=== PATIENT | male | born 1940 | race Native Hawaiian/Other Pacific Islander ===

== ENCOUNTER 2016-11-29 10:29 | Outpatient (CLI) | payer OTHER, MEDICARE ==
[2016-11-29 11:09] LABS: PLATELET COUNT 343 K/uL (142-355)
[2016-11-29 11:29] LABS: POTASSIUM 3.3 mmol/L (3.6-5.2)
== END 2016-11-29 20:17 | disposition home or self-care (01) ==
LOC: LAB 10:29 → LABW 10:29 → INF 10:29
PROVIDERS: Nurse Practitioner
DX: E86.0 Dehydration (principal); L03.115 Cellulitis of right lower limb; R53.1 Weakness; I10 Essential (primary) hypertension; I50.9 Heart failure, unspecified
CPT/HCPCS: 36415; 80053; 81000; 85027; 85651; 86140; 87040; 87070; 87205; 96361; 96365

== ENCOUNTER 2016-12-04 08:21 | Outpatient (CLI) | payer OTHER, MEDICARE ==
[~2016-12-04] VITALS: Ht 180.3 cm; Wt 116.6 kg
[2016-12-04 09:34] LABS: POTASSIUM 3.4 mmol/L (3.6-5.2); SODIUM 136 mmol/L (136-145)
[2016-12-04] MEDS ORDERED: LIPITOR40 MG PO (20:58)
[2016-12-04] MEDS ORDERED: LISI10TA11 PO (20:59)
[2016-12-04] MEDS ORDERED: METOPROLOL25 M1 OR (21:00)
== END 2016-12-04 19:11 | disposition home or self-care (01) ==
LOC: INF 08:21
PROVIDERS: Emergency Medicine
DX: M86.171 Other acute osteomyelitis, right ankle and foot (principal)
CPT/HCPCS: 36415; 80048; 80202; J3370

== ENCOUNTER 2016-12-04 20:44 | Emergency (ER) | payer OTHER, MEDICARE ==
[~2016-12-04] VITALS: Ht 180.3 cm; Wt 117.9 kg
[2016-12-04] MEDS ORDERED: LIPITOR40 MG PO (20:58)
[2016-12-04] MEDS ORDERED: LISI10TA11 PO (20:59)
[2016-12-04] MEDS ORDERED: METOPROLOL25 M1 OR (21:00)
[2016-12-04 21:58] VITALS: BP 141/76; TEMP 97.9
== END 2016-12-04 21:59 | disposition home or self-care (01) ==
LOC: ED 20:44
DX: I16.0 Hypertensive urgency (principal); M86.171 Other acute osteomyelitis, right ankle and foot
CPT/HCPCS: 36415; 36591; 80048; 80202; 96365; 96366; 99282; J3370

== ENCOUNTER 2016-12-06 09:03 | Outpatient (CLI) | payer OTHER, MEDICARE ==
[~2016-12-06 09:03] MED LIST: LIPITOR40 MG PO; LISI10TA11 PO; METOPROLOL25 M1 OR
[2016-12-06 09:30] VITALS: BP 163/102; TEMP 98.6
[2016-12-06 09:45] VITALS: BP 174/103
[2016-12-06 09:55] VITALS: BP 174/100
== END 2016-12-06 19:32 | disposition home or self-care (01) ==
LOC: INF 09:03
DX: Z98.890 Other specified postprocedural states (principal)
CPT/HCPCS: 96523

== ENCOUNTER 2016-12-10 16:43 | Outpatient (CLI) | payer OTHER, MEDICARE ==
[2016-12-10 17:23] LABS: PLATELET COUNT 46 K/uL (142-355)
[2016-12-10 17:50] LABS: POTASSIUM 3.7 mmol/L (3.6-5.2); SODIUM 128 mmol/L (136-145)
== END 2016-12-10 19:36 | disposition home or self-care (01) ==
LOC: LAB 16:43
PROVIDERS: Internal Medicine Cardiovascular Disease
DX: I48.91 Unspecified atrial fibrillation (principal); I25.10 Atherosclerotic heart disease of native coronary artery without angina pectoris; E78.2 Mixed hyperlipidemia; I10 Essential (primary) hypertension; Z79.01 Long term (current) use of anticoagulants; Z51.81 Encounter for therapeutic drug level monitoring
CPT/HCPCS: 80048; 80061; 80076; 84443; 85027

== ENCOUNTER 2018-05-16 08:51 | Outpatient (CLI) | payer OTHER, MEDICARE | END 2018-05-16 19:04 | disposition home or self-care (01) | LOC: US 08:51 | DX: R60.0 Localized edema (principal) ==

== ENCOUNTER 2018-06-03 04:26 | Inpatient (IN) | payer OTHER, MEDICARE ==
[~2018-06-03] VITALS: Ht 180.3 cm; Wt 120.3 kg
[2018-06-03] VITALS (18 sets, daily range): BP systolic 69–133; BP diastolic 42–92; TEMP 97.9–99.3; Ht 180.3 cm; Wt 120.3 kg
[2018-06-03] MEDS ORDERED: K-TAB10 MEQ PO (04:36)
[2018-06-03] MEDS ORDERED: BAYER CHEWABLE81 MG PO (04:37)
[2018-06-03] MEDS ORDERED: TAMS0.4C PO (04:37)
[2018-06-03] MEDS ORDERED: METO50TA27 PO (04:38)
[2018-06-03] MEDS ORDERED: [UNRECOGNIZED DRUG - CODE] PO (04:38)
[2018-06-03] MEDS ORDERED: ELIQUIS5 MG PO (04:39)
[2018-06-03 04:58] LABS: PLATELET COUNT 178 K/uL (142-355)
[2018-06-03 05:11] LABS: POTASSIUM 3.4 mmol/L (3.6-5.2); SODIUM 134 mmol/L (136-145)
[2018-06-04] VITALS (22 sets, daily range): BP systolic 95–167; BP diastolic 51–89; TEMP 98–98.4
[2018-06-04 08:16] LABS: PLATELET COUNT 159 K/uL (142-355)
[2018-06-04 08:25] LABS: POTASSIUM 3.8 mmol/L (3.6-5.2)
[2018-06-05] VITALS (16 sets, daily range): BP systolic 83–163; BP diastolic 48–95; TEMP 97.9–98.4
[2018-06-05 07:10] LABS: PLATELET COUNT 155 K/uL (142-355)
[2018-06-05 07:19] LABS: POTASSIUM 3.8 mmol/L (3.6-5.2)
[2018-06-06 00:24] VITALS: BP 147/69; TEMP 98.2
[2018-06-06 04:29] VITALS: BP 136/58; TEMP 98
[2018-06-06 08:03] VITALS: BP 144/67; TEMP 97.8
[2018-06-06 12:20] VITALS: BP 130/60; TEMP 97.8
== END 2018-06-06 14:00 | disposition home or self-care (01) | DRG 65 ==
LOC: ED 04:26 → ICU 06:15 → MED/SURG 06-05 14:15
PROVIDERS: Emergency Medicine; Internal Medicine
DX: I63.89 Other cerebral infarction (principal); L03.115 Cellulitis of right lower limb; N39.0 Urinary tract infection, site not specified; G81.91 Hemiplegia, unspecified affecting right dominant side; I10 Essential (primary) hypertension; I25.10 Atherosclerotic heart disease of native coronary artery without angina pectoris; I25.2 Old myocardial infarction
CPT/HCPCS: 51702; 80053; 81000; 82550; 82553; 83735; 83880; 84484; 85027; 87040; 93005; 94760; 99285; J0696; J0744; J1650; J2060; J2405; J3490; J7120

== ENCOUNTER 2020-10-14 15:33 | Outpatient (CLI) | payer OTHER, MEDICARE ==
[~2020-10-14 15:33] MED LIST changes: +BAYER CHEWABLE81 MG PO; +ELIQUIS5 MG PO; +K-TAB10 MEQ PO; +METO50TA27 PO; +TAMS0.4C PO; +[UNRECOGNIZED DRUG - CODE] PO
== END 2020-10-14 20:58 | disposition home or self-care (01) ==
LOC: LAB 15:33
PROVIDERS: ATTEND Nurse Practitioner
DX: R39.15 Urgency of urination (principal)
CPT/HCPCS: 81000

== ENCOUNTER 2020-11-25 10:07 | Outpatient (CLI) | payer OTHER, MEDICARE | END 2020-11-25 19:51 | disposition home or self-care (01) | LOC: LAB 10:07 | PROVIDERS: ATTEND Internal Medicine Cardiovascular Disease | DX: I25.10 Atherosclerotic heart disease of native coronary artery without angina pectoris (principal) | CPT/HCPCS: 36415; 80061 ==

== ENCOUNTER 2021-03-12 06:30 | Inpatient (IN) | payer OTHER, MEDICARE ==
[2021-03-12] VITALS (10 sets, daily range): BP systolic 98–148; BP diastolic 45–68; TEMP 98–98.9; Ht 180.3 cm; Wt 112.2 kg
[~2021-03-12] VITALS: Ht 180.3 cm; Wt 112.2 kg
[2021-03-12 07:31] LABS: PLATELET COUNT 152 K/uL (142-355)
[2021-03-12 07:46] LABS: SODIUM 128 mmol/L (136-145)
[2021-03-12 07:51] LABS: PARTIAL THROMBOPLASTIN TIME 25.2 SECONDS (24.5-33.6)
[2021-03-12] MEDS ORDERED: DOXAZOSIN4 M1 PO (10:58)
[2021-03-12] MEDS ORDERED: ASPIRIN REGULA325 MG PO (11:00)
[2021-03-13 04:00] VITALS: BP 152/66; TEMP 98.2
[2021-03-13 05:48] LABS: PLATELET COUNT 126 K/uL (142-355)
[2021-03-13 06:15] LABS: POTASSIUM 2.8 mmol/L (3.6-5.2)
[2021-03-13 08:00] VITALS: BP 136/72; TEMP 98.1
[2021-03-13 12:00] VITALS: BP 148/71; TEMP 98.2
[2021-03-13 16:00] VITALS: BP 150/69; TEMP 97.9
[2021-03-13 20:00] VITALS: BP 152/66; TEMP 98.4
[2021-03-14] VITALS: BP 142/661; TEMP 98
[2021-03-14 04:00] VITALS: BP 133/73; TEMP 97.6
[2021-03-14 06:01] LABS: PLATELET COUNT 145 K/uL (142-355)
[2021-03-14 06:25] LABS: POTASSIUM 3.2 mmol/L (3.6-5.2)
[2021-03-14 08:00] VITALS: BP 147/66; TEMP 97.4
[2021-03-14 12:00] VITALS: BP 159/71; TEMP 97.5
[2021-03-14 16:00] VITALS: BP 139/60; TEMP 97.6
[2021-03-14 20:22] VITALS: BP 169/74; TEMP 98.4
[2021-03-15] VITALS: BP 121/65; TEMP 97.5
[2021-03-15 04:00] VITALS: BP 123/46; TEMP 97.8
[2021-03-15 05:20] LABS: PLATELET COUNT 159 K/uL (142-355)
[2021-03-15 05:33] LABS: POTASSIUM 3.6 mmol/L (3.6-5.2)
[2021-03-15 08:00] VITALS: BP 148/64; TEMP 97.7
[2021-03-15 12:00] VITALS: BP 129/67; TEMP 98.3
[2021-03-15 16:00] VITALS: BP 142/78; TEMP 97.7
[2021-03-15 20:00] VITALS: BP 164/75; TEMP 98.1
[2021-03-16 00:21] VITALS: BP 116/80; TEMP 97.3
[2021-03-16 04:00] VITALS: BP 134/68; TEMP 97.5
[2021-03-16 08:00] VITALS: BP 154/76; TEMP 97.7
[2021-03-16 08:19] LABS: PLATELET COUNT 189 K/uL (142-355)
[2021-03-16 08:33] LABS: POTASSIUM 3.9 mmol/L (3.6-5.2)
[2021-03-16 12:00] VITALS: BP 117/60; TEMP 97.7
[2021-03-16 16:00] VITALS: BP 161/79; TEMP 97.7
== END 2021-03-16 18:42 | disposition swing bed (61) | DRG 948 ==
LOC: ED 06:30 → MED/SURG 08:45
PROVIDERS: Family Medicine; Internal Medicine Endocrinology, Diabetes & Metabolism; ADMIT Internal Medicine; ATTEND Internal Medicine
DX: R53.1 Weakness (principal); E87.1 Hypo-osmolality and hyponatremia; L03.116 Cellulitis of left lower limb; L03.115 Cellulitis of right lower limb; E87.6 Hypokalemia; I48.91 Unspecified atrial fibrillation; I25.10 Atherosclerotic heart disease of native coronary artery without angina pectoris; Z85.46 Personal history of malignant neoplasm of prostate; R10.13 Epigastric pain; Z86.73 Personal history of transient ischemic attack (TIA), and cerebral infarction without residual deficits; I10 Essential (primary) hypertension; R62.7 Adult failure to thrive
CPT/HCPCS: 36415; 51702; 80048; 80053; 81000; 82550; 83605; 84443; 84484; 85027; 85379; 85610; 85730; 87635; 93005; 96360; 96361; 99284; J1650; J2405; J3490; U0003

== ENCOUNTER 2021-03-16 17:05 | Inpatient (IN) | payer OTHER, MEDICARE ==
[~2021-03-16] VITALS: Ht 180.3 cm; Wt 119.4 kg
[~2021-03-16 17:05] MED LIST changes: +ASPIRIN REGULA325 MG PO; +DOXAZOSIN4 M1 PO
[2021-03-16 20:00] VITALS: BP 154/88; TEMP 98
--- NOTE | 2021-03-17 05:23 | NUR ---
Patient is now in the Swing Bed program and is 5'11 inches at 264 lbs. and BMI at 36.8 and is Class II Obesity and IBW for height and male is 172+/-10% (155 to 189 lbs.) and kcal needs for IBW x 25 = 2000 kcal, x 30 = 1300 kcal/day, x 35 = 2700, x 40 = 3100 kcal/day, protein needs x 1.2 to 1.5 = 94 to 117 gram per day and fluids for IBW x 25 to 40 = 200 to 3100 ml/cc per day and patient is 153.4% of IBW. Was admitted with weakness and falls and patient is being hydrated and has IV antibiotics and lives alone and labs reveal HGB, HCT, MCV, MCH, MCHC, Na, Cl, Mg, ALT, and HDL particles are all depressed and CO2, Total bilirubin, and RDW all elevated, BP at 154/80 and has a Dx. of HTN urgency, CVA, UTI and ulcer to right foot and cellulitis of unspecified. On aLow Sodium diet plan. I visited with the patient yesterday. RD available as needed. RD Recommendaitons: 1-Monitor labs 2-PT and OT to work with the patient as needed 3-May want to add NCS High Fiber ot the diet plan 4-Add a MVI 5-Add Vitamin C 500 mg BID 6-Add ZNSO4 220 mg per day x 14 days 7-Add protein 30 ml/cc TID 8-Add 1 cup extra fluid with meals and suggest to add Cranberry Juice with meals 9-May want to add a yogurt iwht meals if will take
[2021-03-17 06:25] VITALS: BP 154/88; TEMP 98.1; Ht 180.3 cm; Wt 119.4 kg
--- NOTE | 2021-03-17 10:33 | NUR ---
Talked with the patient and Avis and talked to him about healthier eating and he would like NCS High Fiber added to his diet plan and he is presently on a low sodium diet and wants to follow. He has been recieving sausage for breakfast and cubed steak with gravy and he stated he only eats 2 meals a day and I encourges him to eat 3 meals a day and went over best meats are chicken, fish and shellfish broiled, boiled, baked, roasted, stewed, grilled or stir fried. He suggested maybe soup for the meal and I stated soups are the highest foods in sodium and went over meats to avoid like, wheat, ham, sausage, luncheon meats, hotdogs, etc.. Recommened: Add High Fiber NCS to the low sodium diet and he wats to follow to decrease weight and try and eat healthier and I stressed to try and include fresh fruit daily.
[2021-03-17 20:00] VITALS: BP 117/63; TEMP 98.2
--- NOTE | 2021-03-18 00:06 | NUR ---
CARTOON DESIGNER HEARD PT GROANING AND YELLING FROM ROOM. WHEN CARTOON DESIGNER ARRIVED IN PT'S ROOM PT STATED "I WAS TRYING TO PEE BUT I CANNOT". CARTOON DESIGNER GOT THE URINAL AND ASSISTED PT TO USE THE URINAL. PT BEGAN TO BARE DOWN VERY HARD IF TO HAVE A BOWEL MOVEMENT BEFORE STREAM OF PEE BEGAN. PT VOIDED 150 ML OF URINE INTO THE URINAL. PT HAD ALREADY URINATED IN THE BED PRIOR TO THE ARRIVAL OF CARTOON DESIGNER. CARTOON DESIGNER BEGAN TO CHANGE BED LINEN WHEN PT ROLLED TO THE LEFT SIDE HE BEGAN TO URINATE AGAIN. PT WAS ABLE TO ROLL ON HIS OWN WITHIN THE BED BUT GROANED AND STATED THAT HIS BACK HIS HURTS. FRESH LINEN AND BRIEF WERE PUT INTO PLACE. PT WAS LEFT IN LOW FOWLERS POSITION WITH SIDERAILS UP X3 AND CALL LIGHT WITHIN REACH. PT WAS EDUCATED TO USE CALL LIGHT TO CALL CARTOON DESIGNER NEXT TIME HE NEEDED TO URINATE.
--- NOTE | 2021-03-18 01:37 | NUR ---
PT CALLED FOR ASSISTANCE WITH THE URINAL. AFTER URINAL WAS PLACED PT BEGAN TO STRAIN TO BEGIN A URINE STREAM. PT VOIDED 25 ML OF PALE URINE. PT STATED "THAT IS ABOUT HOW MUCH I DO EVERY TIME". WHEN PT WAS ASKED IF HE HAS EVER HAD HIS PROSTATE CHECKED THE PT STATED "YES AND I HAVE HAD A TURP DONE BUT IT DID NOT HELP". PT WAS LEFT IN LOW FOWLERS, BEDRAILS UP X3, AND CALL LIGHT WITHIN REACH.
--- NOTE | 2021-03-18 02:36 | NUR ---
PT CALLED FOR ASSISTANCE WITH URINAL. HISTOLOGY SPECIALIST PLACED URINAL IN PROPER POSITION PT BEGAN BARING DOWN TO URINATE. PT STATED "I KEEP FEELING LIKE I HAVE TO PEE BUT THEN I CANT". PT URINATED APPROXIMATELY 25ML.
--- NOTE | 2021-03-18 08:00 | NUR ---
ASSIST Pt. UP TO CHAIR. Pt. REQUIRE MAX ASSIST.
--- NOTE | 2021-03-18 13:00 | NUR ---
Pt. RETURNED TO BED WITH ASSIST.
[2021-03-18 20:00] VITALS: BP 177/79; TEMP 98
--- NOTE | 2021-03-18 22:35 | NUR ---
PT'S BLOOD PRESSURE WAS 177/79 AT 1999. BLOOD PRESSURE RECHECKED AND IS NOW 150/70
--- NOTE | 2021-03-19 04:40 | NUR ---
Talked with the FSD/CDM Teersa and they are serving turkey sausage and we went over the sodium and they were serving 3 pieces and she will begin serving 1 piece of turkey sausage and she also talked with the cooks to change the serving size as well as the patient and Avis to tell them what she was doing, making the changes. We went over all the foods she/her staff are serving and stressed to follow the menus and she will go over wiht all staff, I also have been doing a weekly inservice edcuation with the FS staff going over the different diets with handouts and verbal feedback for the FS staff. They also recieve bifolds to help them better understand the diets and will also be doing handouts to post so they can review as well.
[2021-03-19 08:00] VITALS: BP 140/67; TEMP 97.5
--- NOTE | 2021-03-19 08:15 | NUR ---
IN PT'S ROOM FOR ASSESSMENT, PT IS SITTING UP ON THE SIDE OF THE BED. PT IS ALERT AND ORIENTED. HEART SOUNDS ARE AT REGULAR RATE AND RHYTHM, CAP REFILL <3 SEC IN ALL FOUR EXTREMETIES, PULSES FELT IN UPPER EXTREMITIES AND WEAK IN LOWER EXTREMITIES, PITTING +1 EDEMA IN BLE. BROOK WRAP BANDAGE PRESENT ON RIGHT FOOT. LUNG SOUNDS ARE PRESENT WITH EXPIRATORY WHEEZES, NO COUGH PRESENT. SKIN TURGOR GOOD, SKIN IS WARM AND DRY. ABDOMINAL SOUNDS ARE PRESENT IN ALL FOUR QUADRANTS, STOMACH IS ROUND AND SOFT WITH SMALL BRUISING TO LOWER ABDOMEN. PT STATES THAT THE ONLY PAIN HE IS FEELING THIS MORNING IS THE CHRONIC PAIN THAT HE EXPERIENCES IN HIS BACK. PT DENIES ANY NEEDS AT THIS TIME.
[2021-03-19 20:00] VITALS: BP 145/58; TEMP 97.8
--- NOTE | 2021-03-20 02:30 | NUR ---
03/19/21 2100: PT SITTING ON EDGE OF BED. NO DISTRESS NOTED. WANTS TO BE PUT IN BED. TAKES 2 PERSON MAJOR ASSIST. PT PUT INTO BED AND PULLED UP TO HIGH FOWLERS POSITION. NO DISTRESS NOTED.
[2021-03-20 08:00] VITALS: BP 161/67; TEMP 97.4
--- NOTE | 2021-03-20 16:00 | NUR ---
Pt. SITTING UP IN CHAIR WORKING WITH PHYSICAL THERAPY.
[2021-03-20 20:00] VITALS: BP 150/65; TEMP 97.9
--- NOTE | 2021-03-21 07:45 | NUR ---
PT SITTING UP ON BEDSIDE. ERVIN OT IN TO SEE PT. PT REPORTS HE HAS BEEN SITTING UP ON SIDE OFF BED SINCE 0500 BECAUSE HIS BACK WAS HURTING. PT OFFERED TO SIT IN RECLINER, PT REFUSED STATING "NO I'LL JUST SIT IN THAT CHAIR RIGHT THERE, I'LL BE FINE IN THAT ONE" PT'S BRACE FOR RLE PLACED ON HIM BY LACY MUELLER. PT STATES "NO I CAN'T PUT IT ON MY SON DOES IT"
[2021-03-21 08:00] VITALS: BP 160/71; TEMP 97.4
--- NOTE | 2021-03-21 09:34 | NUR ---
PT REQUESTS TO TALK WITH DR. BULL ABOUT HIS BLOOD PRESSURE MEDICATIONS. PT SITTING UP IN CHAIR AT BEDSIDE. PT REQUESTED HIS BLINDS TO BE OPENED. OPENED PT'S BLINDS. PT DENIES ANY FURTHER QUESTIONS OR COMPLAINTS AT THIS TIME.
--- NOTE | 2021-03-21 15:31 | NUR ---
PT STATES AT THIS TIME "CAN YOU WRITE ON THAT COMPUTER, DO NOT WANT THE LOZOL" NOTED THAT PT DOES NOT WANT THE LOZOL.
[2021-03-21 20:00] VITALS: BP 156/74; TEMP 98.1
[2021-03-22 08:00] VITALS: BP 109/67; TEMP 98.1
[2021-03-22 20:00] VITALS: BP 157/73; TEMP 98.3
[2021-03-23 08:00] VITALS: BP 160/80; TEMP 97.7
--- NOTE | 2021-03-23 14:50 | NUR ---
DRESSING CHANGE COMPLETED TO 5TH METATARSAL BASE 1.5 CMx 1.9 CMx 0.4CM SOILED DRESSING REMOVED AFTER SHOWER. CLEANSED WOUND WITH NORMAL SALINE. APPLIED HYDRAFERA BLUE MOISTENED WITH NORMAL SALINE, COVERED WITH STERILE 2X2, 4X4, AND WRAPPED WITH KERLIX AND SECURED WITH COBAN.
--- NOTE | 2021-03-23 17:27 | NUR ---
IDT Team Meeting and is in the Swing Bed Program; Met today with patients and his diet has been changed to a Regualr diet plan and he is 5'11" and at 261 lbs. and 1 ounce and he satted all his meals and food are good. He was on a low sdoium diet plan and Mr. Spencer, patient and I talked severla times last week. Was on a Low Sodium diet d/t blood pressure, he is swollern and we think it is actaul weight gain because he is eating 3 meals and not 2 meals a day as he was doing at home. Pleased with meals and RD is available as needed.
[2021-03-23 20:00] VITALS: BP 164/77; TEMP 97.9
--- NOTE | 2021-03-24 04:05 | NUR ---
PT RESTING QUIETLY. CALLS FOR ASSISTANCE TO USE URINAL. NO VOICED COMPLAINTS AT THIS TIME.
[2021-03-24 08:00] VITALS: BP 132/66; TEMP 97.7
--- NOTE | 2021-03-24 10:19 | NUR ---
we had IDT meeting yesterday in pts room, see list of attandees, but also with Ananya Bernardo RD on speaker phone. Pts goal is to return home as independent as possible, and with assistance from his son Jasper Hameed. He states he already has separating machine operator, WC, lift chair, safe step tub, and his son beings hot meals. He agreed to a home evaluation possibly the end of next week or the following week.
--- NOTE | 2021-03-24 14:26 | NUR ---
PT SITTING UP ON THE SIDE OF BED. ALERT AND ORIENTED. DENIES ANY PAIN OR DISCOMFORT. NAD NOTED. EDEMA NOTED TO LOWER EXTREMITIES, PITTING +1. PT CONTINUES TO VOID IN URINAL WITH ASSISTANCE FROM NURSING STAFF. PT COMPLIANT WITH PT. CONSULTED WITH DR CABRAL REGARDING PTS MEDS AND EDEMA TO LOWER EXTREMITIES. PER DR CABRAL D/C LASIX, CLINDAMYCIN AND BEGIN LASIX 40 MG PO X 1 DOSE NOW.
[2021-03-24 14:59] LABS: PLATELET COUNT 197 K/uL (142-355)
[2021-03-24 15:12] LABS: POTASSIUM 4.6 mmol/L (3.6-5.2)
[2021-03-24 20:00] VITALS: BP 139/76; TEMP 98.3
[2021-03-25 05:56] LABS: PLATELET COUNT 185 K/uL (142-355)
[2021-03-25 08:00] VITALS: BP 148/62; TEMP 98.1
--- NOTE | 2021-03-25 08:21 | NUR ---
PT UP SITTING ON THE SIDE OF BED. ALERT AND ORIENTED. DENIES ANY PAIN OR DISCOMFORT. EDEMA NOTED TO LOWER EXTREMITIES, PITTING +1. PT ON LASIX PO DAILY. NO NAD NOTED. PT REPLIED "I SLEPT BETTER LAST NIGHT THAN I HAVE IN A LONG TIME." PT STATED HE SLEPT 6 HRS WITHOUT NO INTERUPTION.
--- NOTE | 2021-03-25 17:30 | NUR ---
PT SITTING UP MOST OF THE DAY. PT DENIES ANY PAIN OR DISCOMFORT AT THIS TIME. NAD NOTED. PT ALERT AND ORIENTED.
[2021-03-25 20:00] VITALS: BP 137/69; TEMP 97.5
--- NOTE | 2021-03-26 04:35 | NUR ---
Pt resting quietly in bed with eyes closed. Calls for assistance as needed with use of urinal. Has occassional incontinent episodes. PRN pain med given at hs for c/o lower back and right foot pain with relief noted. No further c/o voiced. Call light in easy reach.
[2021-03-26 05:26] LABS: PLATELET COUNT 187 K/uL (142-355)
[2021-03-26 08:00] VITALS: BP 115/65; TEMP 97.5
--- NOTE | 2021-03-26 11:12 | NUR ---
PT UP SITTING ON THE SIDE OF BED. ASSISTED PT WITH URINAL TO VOID, PT UNABLE TO HOLD URINAL ON HIS OWN, DECREASED GRASP. NAD NOTED. EDEMA NOTED TO LOWER EXTREMITIES,NON-PITTING. PT ALERT AND ORIENTED. AM MEDS ADMINISTERED EXCEPT THE LISNOPRIL R/T PTS SE=[phone]/[id number]. CONTINUE TO MONITOR.
--- NOTE | 2021-03-26 18:53 | NUR ---
CHANGED WOUND TO RIGHT HEEL WITH HYDRAFERA BLUE W/ NS AND COVERED W/ STERILE 2X2 AND 4X4, THEN WRAPPED WITH KERLIX AND USED COBAN TO SECURE DSG. WOUND 1.5CM X 1.9CMCM X 0.4CM. WOUND RED WITH NO ODOR AND SKIN INTACT AROUND WOUND. PT DENIES ANY PAIN/DISCOMFORT.
[2021-03-26 20:00] VITALS: BP 147/77; TEMP 97.7
--- NOTE | 2021-03-27 04:45 | NUR ---
Pt resting in bed with eyes closed. Dressing to right foot dry and intact. PRN pain med given with hs meds for lower back pain and right foot pain with relief noted. No further c/o pain/discomfort voiced. No s/s of distress. Call light in easy reach.
[2021-03-27 05:13] LABS: PLATELET COUNT 187 K/uL (142-355)
[2021-03-27 08:00] VITALS: BP 106/59; TEMP 97.9
[2021-03-27 20:00] VITALS: BP 109/55; TEMP 97.7
--- NOTE | 2021-03-28 04:21 | NUR ---
PT RESTING QUIETLY. NO DISTRESS NOTED. NO FURTHER COMPLAINTS OF PAIN. PT CALLS FOR ASSISTANCE WITH URINAL.
[2021-03-28 06:13] LABS: PLATELET COUNT 204 K/uL (142-355)
[2021-03-28 08:00] VITALS: BP 116/56; TEMP 98
[2021-03-28 20:00] VITALS: BP 140/62; TEMP 98.3
[2021-03-29 08:00] VITALS: BP 151/72; TEMP 97.7
--- NOTE | 2021-03-29 12:17 | NUR ---
PT UP IN CHAIR WITH ASSISTANCE FROM PT. PT COMPLIANT WITH THEARPY. PT ONE PERSON ASSIST WHEN VOIDING IN URINAL. PT CAN STAND UP FROM CHAIR TO WALKER WITH ONE PERSON ASSIST. NAD NOTED. DENIES PAIN/DISCOMFORT. AM MEDS ADMINISTERED WITH NO DIFFICULTY. PT VOICED CONCERNS ABOUT GOING HOME ON SATURDAY AND GOING FOR HOME EVAL ON SATURDAY. PT ELATED TO GO HOME. PT STATED "I FEEL LIKE I HAVE MADE A LOT OF PROGRESS AND WILL DO BETTER AT HOME B/C OF FAMILIAR SURROUNDINGS."
[2021-03-29 20:00] VITALS: BP 127/61; TEMP 98
[2021-03-30 05:11] LABS: PLATELET COUNT 185 K/uL (142-355)
[2021-03-30 08:00] VITALS: BP 125/57; TEMP 98.4
--- NOTE | 2021-03-30 10:43 | NUR ---
PT ASSISTED WITH BATH AND GETTING DRESSED FOR HOME EVAL. NAD NOTED. EDEMA TO LOWER EXTREMITIES. DENIES ANY PAIN/DISCOMFORT. AM MEDS ADMINISTERED AND PT TOLERATED WELL. PT ATE BREAKFAST. ALERT AND OREIENTED. SON ARRIVED TO PICK PT UP FOR HOME EVAL. AT 0900, PT TRANSPORTED TO FRONT VIA WHEELCHAIR.
--- NOTE | 2021-03-30 16:10 | NUR ---
PT RETURNED FROM HOME EVALUATION AT 1600. PT ASSISTED TO BEDSIDE COMMODE AND THEN TO BED. PT STATED "I ENJOYED MY VISIT" DENIES ANY PAIN/DISCOMFORT. NAD NOTED. PTS SON IS SCHEDULED TO PICK PT UP ON SATURDAY, March TO BE DISCHARGED HOME AT 0900.
--- NOTE | 2021-03-30 18:25 | NUR ---
PT SITTING UP IN CHAIR. PT TALKED ABOUT HOW WELL HIS HOME EVALUATION HAD BEEN TODAY. PT ANXIOUS ABOUT GOING HOME IN AM. WOUND CHANGE TO RIGHT HEEL COMPLETED. CLEANED WITH NS, WOUND PINK AND RED IN COLOR. PURULENT DRAINAGE NOTED TO OLD DSG. STERILE 2X2 GAUZE AND 4X4 GAUZE APPLIED TO WOUND AND WRAPPED IN KIRLEX AND INTACT WITH KOBAN. WRAPPED LOOSELY.
[2021-03-30 20:00] VITALS: BP 146/59; TEMP 98.1
--- NOTE | 2021-03-31 04:51 | NUR ---
Pt resting in bed with eyes closed. Calls for assistance with urinal during the night. Denies c/o pain/distress at this time. No s/s of distress. Call light in easy reach.
[2021-03-31 05:36] LABS: PLATELET COUNT 197 K/uL (142-355)
--- NOTE | 2021-03-31 07:44 | NUR ---
PT AWAKE, ALERT AND ORIENTED. PT SITTING UP IN CHAIR, NSG STAFF ASSISTED PT AND PT IS DRESSED AND READY TO GO HOME. PT DENIES ANY PAIN/DISCOMFORT. EDEMA TO LOWER EXTREMITIES IMPROVED, NON-PITTING EDEMA. PT ON DIURETIC MEDICATION. PT ELATED ABOUT GOING HOME, "I'M FAMILIAR WITH MY HOUSE." NAD NOTED. AM MEDS ADMINISTERED ORDERED.
--- NOTE | 2021-03-31 08:19 | NUR ---
PTS BG=[phone]/[id number], DID NOT ADMINISTER LINSINOPRIL AND METOPROLOL. EXPLAINED TO PT WHY MED WAS HELD. PT AGREES.
[2021-03-31 08:20] VITALS: BP 116/54; TEMP 97.7
--- NOTE | 2021-03-31 09:17 | NUR ---
i spoke with pt this am in his room and he stated he was ready for discharge today. I told him i would speak with Dr. Brannon for her recommendations. I spoke with pts son, Bradley Hameed [phone] cell, to let him know that pt stated he is ready for discharge today. I informed Bradley that the therapist recommended a 12 in permanant grab bar in front of pts toilet for safety, and they recommended a BSC with drop arms for easier transfers. Bradley stated he will pu the grab bar & a medical office professional instructor with pincher that Mr. Hameed wanted from [employer] and that he will pu the BSC with drop arms from [employer].
--- NOTE | 2021-03-31 10:51 | NUR ---
PT SITTING UP IN CHAIR AWAITING DISCHARGE. DENIES ANY PAIN/DISCOMFORT. NAD NOTED. PT ALERT AND ORIENTED.
[2021-03-31] MEDS ORDERED: BLOOMIS59 PO ×5 (13:22→13:31)
--- NOTE | 2021-03-31 14:41 | NUR ---
PT GIVEN DISCHARGE INSTRUCTIONS AND PT EDUCAION IN WRITTEN FORM REGARDING DX AND MEDICATIONS. PT VERBALIZED UNDERSTANDING. LISIONOPRIL AND LASIX CALLED IN TO [facility]. HOME MEDS GIVEN TO PT AND PT SIGNED HOME MED FORM, FORM IN CHART. F/U APPOINTMENT WITH PCP GIVEN TO PT AND SON. PT TRANSPORTED OUT OF FACILITY VIA WHEELCHAIR, SON PICKED PT UP.
== END 2021-03-31 12:45 | disposition home health service (06) | DRG 602 ==
LOC: MED/SURG 17:05
PROVIDERS: ADMIT Internal Medicine; ATTEND Internal Medicine
DX: L03.115 Cellulitis of right lower limb (principal); L03.116 Cellulitis of left lower limb; L89.893 Pressure ulcer of other site, stage 3; R53.81 Other malaise; M62.81 Muscle weakness (generalized); Z74.1 Need for assistance with personal care; R26.81 Unsteadiness on feet; I48.91 Unspecified atrial fibrillation; I25.10 Atherosclerotic heart disease of native coronary artery without angina pectoris; I10 Essential (primary) hypertension; Z91.81 History of falling; N40.1 Benign prostatic hyperplasia with lower urinary tract symptoms; I73.9 Peripheral vascular disease, unspecified; G62.9 Polyneuropathy, unspecified; R32 Unspecified urinary incontinence; E87.6 Hypokalemia; M21.6X1 Other acquired deformities of right foot; E78.6 Lipoprotein deficiency; E87.1 Hypo-osmolality and hyponatremia; Z85.46 Personal history of malignant neoplasm of prostate
CPT/HCPCS: 36415; 80048; 85027; 87081

== ENCOUNTER 2021-05-15 17:14 | Outpatient (CLI) | payer OTHER, MEDICARE ==
[~2021-05-15 17:14] MED LIST changes: +BLOOMIS59 PO
== END 2021-05-15 20:12 | disposition home or self-care (01) ==
LOC: LAB 17:14
PROVIDERS: ATTEND Nurse Practitioner
DX: L03.90 Cellulitis, unspecified (principal)
CPT/HCPCS: 87070; 87077; 87186; 87205

== ENCOUNTER 2021-05-29 | Emergency (ER) | payer OTHER, MEDICARE ==
[~2021-05-29] VITALS: Ht 180.3 cm; Wt 122.5 kg
[2021-05-29 00:55] LABS: PLATELET COUNT 210 K/uL (142-355)
[2021-05-29 01:08] LABS: POTASSIUM 3.9 mmol/L (3.6-5.2); SODIUM 138 mmol/L (136-145)
[2021-05-29 01:13] LABS: PARTIAL THROMBOPLASTIN TIME 27.1 SECONDS (24.5-33.6)
[2021-05-29 03:22] VITALS: BP 120/46; TEMP 96.2
== END 2021-05-29 03:22 | disposition home or self-care (01) ==
LOC: ED
PROVIDERS: Hospitalist
DX: E86.0 Dehydration (principal); N39.0 Urinary tract infection, site not specified; Z79.82 Long term (current) use of aspirin; Z51.81 Encounter for therapeutic drug level monitoring
CPT/HCPCS: 36415; 80053; 81000; 82550; 83880; 84484; 85027; 85610; 85730; 87088; 93005; 96360; 96365; 96366; 96375; 99284; J1885; J1956; J2405

== ENCOUNTER 2021-05-29 19:13 | Outpatient (CLI) | payer OTHER, MEDICARE ==
[2021-05-29 20:31] LABS: PLATELET COUNT 202 K/uL (142-355)
[2021-05-29 20:52] LABS: POTASSIUM 4.5 mmol/L (3.6-5.2)
== END 2021-05-29 20:01 | disposition home or self-care (01) ==
LOC: LAB 19:13
PROVIDERS: ATTEND Nurse Practitioner Family
DX: N39.0 Urinary tract infection, site not specified (principal)
CPT/HCPCS: 80053; 81000; 85027; 87077; 87086; 87088; 87186

== ENCOUNTER 2021-06-14 11:53 | Inpatient (IN) | payer OTHER, MEDICARE ==
[~2021-06-14] VITALS: Ht 180.3 cm; Wt 118.9 kg
[2021-06-14] MEDS ORDERED: LISI10TA11 PO (15:18)
[2021-06-14] MEDS ORDERED: TYLENOL325 MG PO (15:21)
[2021-06-14] MEDS ORDERED: STOOL SOFTNR100 M1 PO (15:23)
[2021-06-14 15:30] VITALS: BP 115/54; TEMP 97.9; Ht 180.3 cm; Wt 118.9 kg
[2021-06-14 20:00] VITALS: BP 81/41; TEMP 97.6
[2021-06-15 08:00] VITALS: BP 127/64; TEMP 97.8
[2021-06-15 16:21] LABS: PLATELET COUNT 118 K/uL (142-355)
[2021-06-15 20:15] VITALS: BP 127/50
[2021-06-16 08:00] VITALS: BP 126/57; TEMP 97.9
[2021-06-16 20:00] VITALS: BP 130/69; TEMP 97
[2021-06-17 20:23] VITALS: BP 116/50; TEMP 97.6
[2021-06-18 08:00] VITALS: BP 121/58; BP 122/50; TEMP 97.8
[2021-06-19 06:31] VITALS: BP 122/50
[2021-06-19 08:00] VITALS: BP 124/59; TEMP 98
[2021-06-19 20:01] VITALS: BP 102/61
[2021-06-20 08:00] VITALS: BP 111/49; TEMP 98.1
[2021-06-20 20:00] VITALS: BP 113/87; TEMP 97.2
[2021-06-21 08:00] VITALS: BP 92/41; TEMP 98
[2021-06-21 20:00] VITALS: BP 106/43
[2021-06-22 20:00] VITALS: BP 84/38; TEMP 97.9
[2021-06-23 03:00] VITALS: BP 95/38
[2021-06-23 13:08] LABS: PLATELET COUNT 120 K/uL (142-355)
[2021-06-23 13:11] LABS: POTASSIUM 3.8 mmol/L (3.6-5.2)
[2021-06-23 20:00] VITALS: BP 107/83; TEMP 97.5
[2021-06-24 10:11] VITALS: BP 102/58
== END 2021-06-24 12:25 | disposition short-term general hospital (02) | DRG 871 ==
LOC: SWING 11:53 → MED/SURG 11:54
PROVIDERS: Internal Medicine Endocrinology, Diabetes & Metabolism; ADMIT Internal Medicine; ATTEND Internal Medicine
DX: A41.9 Sepsis, unspecified organism (principal); N16 Renal tubulo-interstitial disorders in diseases classified elsewhere; R53.81 Other malaise; R13.11 Dysphagia, oral phase; R48.8 Other symbolic dysfunctions; M62.81 Muscle weakness (generalized); Z74.1 Need for assistance with personal care; R26.81 Unsteadiness on feet; I48.91 Unspecified atrial fibrillation; G62.9 Polyneuropathy, unspecified; I10 Essential (primary) hypertension; Z91.81 History of falling; N40.1 Benign prostatic hyperplasia with lower urinary tract symptoms; I73.9 Peripheral vascular disease, unspecified; L89.893 Pressure ulcer of other site, stage 3; R32 Unspecified urinary incontinence; E87.6 Hypokalemia; M21.6X1 Other acquired deformities of right foot; R41.82 Altered mental status, unspecified; R31.9 Hematuria, unspecified; R06.02 Shortness of breath; I25.10 Atherosclerotic heart disease of native coronary artery without angina pectoris; L03.116 Cellulitis of left lower limb; L03.115 Cellulitis of right lower limb; E78.5 Hyperlipidemia, unspecified; E87.1 Hypo-osmolality and hyponatremia; Z85.46 Personal history of malignant neoplasm of prostate
CPT/HCPCS: 80048; 80053; 80202; 81000; 85027; 87070; 87077; 87081; 87086; 87088; 87185; 87186; 87205; 87635; J1940; J2185; J3370; U0003